=== PATIENT | female | born 1950 | race Caucasian/White ===

== ENCOUNTER 2022-04-21 11:16 | Emergency (ER) | payer MEDICARE, OTHER ==
[~2022-04-21] VITALS: Ht 172.7 cm; Wt 99.8 kg
[2022-04-21] MEDS ORDERED: IBUPROFEN 600 MG TAB PO STA (11:55)
[2022-04-21] MEDS ORDERED: CYCLOBENZAPRINE5 MG PO (14:13)
== END 2022-04-21 15:30 | disposition home or self-care (01) ==
LOC: ER 11:56
DX: S32.010A Wedge compression fracture of first lumbar vertebra, initial encounter for closed fracture (principal); M51.36 Other intervertebral disc degeneration, lumbar region; W18.39XA Other fall on same level, initial encounter; Y92.89 Other specified places as the place of occurrence of the external cause; F41.9 Anxiety disorder, unspecified
CPT/HCPCS: 72100; 99283

== ENCOUNTER 2024-03-24 19:12 | Emergency (ER) | payer MEDICARE ==
[~2024-03-24] VITALS: Ht 172.7 cm; Wt 90.7 kg
[~2024-03-24 19:12] MED LIST: CYCLOBENZAPRINE5 MG PO
[2024-03-24 21:27] VITALS: BP 144/83; PULSE 71; RESP 16; TEMP 98.4; O2SAT 96
== END 2024-03-24 21:13 | disposition home or self-care (01) ==
LOC: ER 19:15
DX: S00.83XA Contusion of other part of head, initial encounter (principal); S60.212A Contusion of left wrist, initial encounter; S63.592A Other specified sprain of left wrist, initial encounter; S63.591A Other specified sprain of right wrist, initial encounter; S30.0XXA Contusion of lower back and pelvis, initial encounter; W01.0XXA Fall on same level from slipping, tripping and stumbling without subsequent striking against object, initial encounter; Y93.01 Activity, walking, marching and hiking; Y92.89 Other specified places as the place of occurrence of the external cause; E78.5 Hyperlipidemia, unspecified; M19.09 Primary osteoarthritis, other specified site
CPT/HCPCS: 70450; 72125; 72220; 99283